=== PATIENT | female | born 1950 | race Caucasian/White ===

== ENCOUNTER 2018-01-18 14:50 | Emergency (ER) | payer OTHER ==
[~2018-01-18] VITALS: Ht 167.6 cm; Wt 130.6 kg
[2018-01-18] MEDS ORDERED: GLUCOPHAGE XR500 MG (15:14)
[2018-01-18] MEDS ORDERED: OSTERA TABLET1 EACH (15:14)
[2018-01-18] MEDS ORDERED: AMITRIPTYLINE H25 MG (15:15)
[2018-01-18] MEDS ORDERED: PRAVASTATIN SOD20 MG (15:16)
[2018-01-18] MEDS ORDERED: NEURONTIN300 MG (15:16)
[2018-01-18] MEDS ORDERED: VASOTEC2.5 MG (15:16)
[2018-01-18] MEDS ORDERED: SINGULAIR10 MG (15:17)
== END 2018-01-18 19:42 | disposition home or self-care (01) ==
LOC: ER 14:50
DX: N20.1 Calculus of ureter (principal); R31.0 Gross hematuria

== ENCOUNTER 2019-04-21 16:32 | Emergency (ER) | payer OTHER ==
[~2019-04-21] VITALS: Ht 157.5 cm; Wt 112.0 kg
[~2019-04-21 16:32] MED LIST: AMITRIPTYLINE H25 MG; GLUCOPHAGE XR500 MG; NEURONTIN300 MG; OSTERA TABLET1 EACH; PRAVASTATIN SOD20 MG; SINGULAIR10 MG; VASOTEC2.5 MG
== END 2019-04-21 22:28 | disposition home or self-care (01) ==
LOC: ER 16:32
DX: M25.571 Pain in right ankle and joints of right foot (principal)

== ENCOUNTER 2020-11-08 07:53 | Outpatient (CLI) | payer OTHER | END 2020-11-08 07:54 | disposition home or self-care (01) | LOC: TOM 07:53 | PROVIDERS: ATTEND Internal Medicine Gastroenterology | DX: K63.89 Other specified diseases of intestine (principal); Z12.11 Encounter for screening for malignant neoplasm of colon ==

== ENCOUNTER 2025-03-09 13:02 | Emergency (ER) | payer OTHER ==
[~2025-03-09] VITALS: Ht 167.6 cm; Wt 117.9 kg
[2025-03-09] MEDS ORDERED: FAMOTIDINE/PF 20 MG/2 ML VIAL IV PUSH STA (15:15)
[2025-03-09] MEDS ORDERED: 0.9 % SODIUM CHLORIDE 1,000 ML IV STA (15:15)
[2025-03-09] MEDS ORDERED: KETOROLAC TROMETHAMINE 15 MG VIAL IV STA (15:15)
[2025-03-09] MEDS ORDERED: LACTOBACILLUS ACIDOPHILUS 1 CAP CAP PO STA (15:16)
[2025-03-09] MEDS ORDERED: KETOROLAC TROMETHAMINE 30 MG VIAL ONE (16:32)
[2025-03-09] MEDS ORDERED: FAMOTIDINE/PF 20 MG/2 ML VIAL ONE (16:33)
[2025-03-09] MEDS ORDERED: LACTOBACILLUS ACIDOPHILUS 1 CAP CAP PO ONE (16:33)
[2025-03-09 17:09] LABS: BASO % 0.2 % (0.1-1.2); EOS # 0.35 (0.04-0.54); EOS % 2.7 % (0.7-7.0); LYMPH # 2.64 (1.18-3.74); LYMPH % 20.2 % (19.3-53.1); MEAN PLATELET VOLUME 10.00 fl (9.4-12.4); MONO # 1.04 (0.24-0.82); MONO % 8.0 % (4.7-12.5); NEUT # 8.97 (1.56-6.13); NEUT % 68.6 % (34.0-71.1); RED CELL DISTRIBUTION WIDTH 15.8 % (11.6-14.4)
[2025-03-09 18:43] LABS: COVID-19 AG NEGATIVE (NEGATIVE)
[2025-03-09 18:55] LABS: URINE APPEARANCE Clear; URINE BILIRRUBIN Negative (NEGATIVE); URINE BLOOD Small; URINE COLOR Yellow; URINE GLUCOSE Negative (NEGATIVE); URINE KETONE Negative (NEGATIVE); URINE LEUKOCYTE Trace; URINE NITRATE Negative; URINE PROTEIN Negative (NEGATIVE); URINE UROBILINOGEN 0.2 E.U./dl
[2025-03-09 18:56] LABS: ALT/SGPT 19.0 U/L (12-78); AST/SGOT 10.0 U/L (15-37); BILIRUBIN TOTAL 0.33 mg/dL (0.3-1.2); BUN CREA RATIO 17.0 (7.0-25.0); CREATININE SERUM 1.06 mg/dL (0.55-1.02); GFR 50.54; GLOBULINA 3.8 G/DL (2.4-3.5); GLUCOSE FASTING 135.0 mg/dL (65-100); OSMOLALITY SERUM 293.0 MOSM/KG (275-295)
[2025-03-09 18:59] LABS: URINE BACTERIA 635.9 uL (0.0-1933); URINE EPITHELIAL CELLS 23.2 uL (0.0-38.8); URINE RBC 29.8 uL (0.0-20.8); URINE WBC 47.3 uL (0.0-23.2)
[2025-03-09 19:01] LABS: URINE CAST 0.70 uL (0.0-1.40)
[2025-03-09] MEDS ORDERED: CEFTRIAXONE SODIUM 1,000 MG VIAL IV STA (19:05)
[2025-03-09] MEDS ORDERED: CEFTRIAXONE SODIUM 1,000 MG VIAL ONE (19:13)
== END 2025-03-09 20:14 | disposition home or self-care (01) ==
LOC: ER 13:02
PROVIDERS: General Practice
DX: M25.562 Pain in left knee (principal); R51.9 Headache, unspecified; D72.829 Elevated white blood cell count, unspecified; R26.2 Difficulty in walking, not elsewhere classified; Z20.822 Contact with and (suspected) exposure to COVID-19; E11.9 Type 2 diabetes mellitus without complications; Z79.84 Long term (current) use of oral hypoglycemic drugs
CPT/HCPCS: 36415; 70450; 70490; 72192; 73700; 96365; 96366; 99284; J0696; J1885; J3490; J7030